=== PATIENT | female | born 1985 | race Caucasian/White ===

== ENCOUNTER 2016-10-04 22:34 | Emergency (ER) | payer OTHER ==
--- NOTE | 2016-10-05 00:08 | ED CLINICAL REPORT ---
Clinical Report - Physicians/Mid Levels [facility] [address] [place] [address] 10/04/2016 22:36 Patient: ZULLY DONOVAN *This is a preliminary document and is subject to change Time Seen: 22:53; initial patient contact. Arrived- By private vehicle. Historian- patient. HISTORY OF PRESENT ILLNESS At its maximum, severity described as moderate. When seen in the E.D., it was almost gone. Modifying factors- (Relieved with canabis candy). Not worsened by anything. It is described as cramping. No radiation. It is described as located in the left pelvis. Is still present but is better now. It was gradual in onset and has been intermittent. The patient has had nausea. No loss of appetite, vomiting or diarrhea. Similar symptoms previously: None. 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 REVIEW OF SYSTEMS No constipation, difficulty with urination, pain with urination, urinary frequency or fever. No skin rash or chills. Last bowel movement: today. She has had joint pain. All systems otherwise negative, except as recorded above. PAST HISTORY URI. SURGERIES: Knee Surgery. SOCIAL HISTORY Never smoker. History of drug use: marijuana. No alcohol use. ADDITIONAL NOTES The nursing notes have been reviewed. PHYSICAL EXAM Vital Signs: 10/04/2016 22:40 BP: 125/71. HR: 81. RR: 17. O2 saturation: 100%. Temp: 97.6 F. Pain level now: 11/04. Have been reviewed as normal. Appearance: Alert. Oriented X3. No acute distress. Eyes: Eyes normal inspection. ENT: Pharynx normal. CVS: Normal heart rate and rhythm. Heart sounds normal. Respiratory: No respiratory distress. Breath sounds normal. Abdomen: Soft and nontender. Bowel sounds normal. No organomegaly. No mass. Back: Normal inspection. No CVA tenderness. Skin: Skin warm and dry. Normal skin color. No rash. Extremities: No lower extremity edema. Neuro: Oriented X 3. No motor deficit. LABS, X-RAYS, AND EKG Laboratory Tests: UA-Culture if indicated: (CHARISMA: 10/04/2016 22:52) ( Mscvd 10/04/2016 23:18) Final results Test Result Flag Units (Reference) URINE COLOR YELLOW URINE APPEARANCE CLEAR URINE GLUCOSE NEGATIVE (NEGATIVE) URINE BILIRUBIN NEGATIVE (NEGATIVE) URINE KETONE NEGATIVE (NEGATIVE) URINE SPECIFIC GRAVITY 1.010 (1.010-1.030) URINE PH 6.0 (5.0-8.0) URINE PROTEIN NEGATIVE (NEGATIVE) URINE UROBILINOGEN 0.2 EU/dL (0.2-1.0) URINE NITRITE NEGATIVE (NEGATIVE) URINE BLOOD NEGATIVE (NEGATIVE) URINE LEUK ESTERASE NEGATIVE (NEGATIVE) URINE RBC 0-1 rbc/hpf (0-1) URINE WBC RARE wbc/hpf (0-1) URINE EPITHELIAL CELLS 1-3 EPI/hpf (0-5) URINE BACTERIA TRACE (<1+) (NONE SEEN) URINE COMMENT CULT NOT INDICATED URINE CULTURES ARE SET-UP BASED ON THE FOLLOWING CRITERIA:POSITIVE NITRITEPOSITIVE LEUKOCYTE ESTERASEGREATER THAN 10 WHITE BLOOD CELLSMODERATE (2+) OR GREATER BACTERIA Urine: (CHARISMA: 10/04/2016 22:52) ( MsgRcvd 10/04/2016 23:14) Final results Test Result Flag Units (Reference) URINE NEGATIVE CBC w Diff: (CHARISMA: 10/04/2016 22:45) ( MsgRcvd 10/04/2016 23:43) Final results Test Result Flag Units (Reference) WHITE BLOOD COUNT 6.6 K/uL (4.5-11.5) RED BLOOD COUNT 4.73 M/uL (4.00-5.20) HEMOGLOBIN 13.5 gm/dL (12.0-16.0) HEMATOCRIT 41.8 % (36.0-46.0) MEAN CELL VOLUME 88 fL (80-100) MEAN CORPUSCULAR HGB 29 pg (26-34) MEAN CORPUSCULAR HGB CONC 32 g/dL (31-37) RED CELL DISTRIBUTION WIDTH 13.2 % (11.6-14.8) PLATELET COUNT 200 K/uL (150-400) POLY % 55 % (50-75) BAND % 0 % (0-8) LYMPH 33 % (25-40) MONO 7 % (3-14) EOSINOPHIL % 4 % (0-4) BASOPHIL % 1 % (0-2) METAMYELOCYTE % 0 % (0-1) MYELOCYTE 0 % (0-1) OTHER CELL TYPE 0 Lipase: (CHARISMA: 10/04/2016 22:55) ( MsgRcvd 10/04/2016 23:34) Final results Test Result Flag Units (Reference) GLUCOSE 84 mg/dL (70-110) BUN 11 mg/dL (7-18) CREATININE 0.8 mg/dL (0.6-1.3) Estimated GFR >60 mL/min Estimated GFR- >60 mL/min Note: Persistent reduction over 3 months in eGFR<60 mL/min/1.73 m2 defines CKD. Patients with eGFR values>=60 mL/min/1.73 m2 may also have CKD if evidence ofpersistent proteinuria. Additional information may be foundat www.kidney.org. SODIUM 144 mmol/L (136-145) POTASSIUM 3.7 mmol/L (3.5-5.1) CHLORIDE 107 mmol/L (98-107) CARBON DIOXIDE 27 mmol/L (21-32) CALCIUM 8.5 mg/dL (8.5-10.1) TOTAL PROTEIN 7.4 g/dL (6.4-8.2) ALBUMIN 3.9 g/dL (3.3-5.0) BILIRUBIN, TOTAL 0.8 mg/dL (0.0-1.0) ALKALINE PHOSPHATASE 83 U/L (46-116) AST (SGOT) 30 U/L (15-37) ALT (SGPT) 46 U/L (12-78) LIPASE 180 U/L (73-393) AMYLASE 50 U/L (25-115) . Aleksandar Barnhart Dr.
--- NOTE | 2016-10-05 00:08 | ED NURSING NOTES ---
Clinical Report - Nurses [facility] [address] [place] [address] 10/04/2016 22:36 Patient: ZULLY DONOVAN TRIAGE Triage time 22:41 Oct 04 2016. Chief Complaint: ABDOMINAL PAIN and (pt co "cramping" low abd area that radiates up to left upper quad, normal bm this morning, completed atbx for uti one week ago). Alert. No acute distress. SEPSIS SCREEN: Sepsis Screen. Negative (no infection suspected/documented). --22:46 Herve Lees R.N. 22:40 10/04/16. BP: 125/71. HR: 81. RR: 17. O2 saturation: 100%. Temp: 97.6 F. Pain level now: 11/04. --22:46 Herve Lees R.N. Weight: 56.6 kg stated. Height/Length: 65 inches Per Patient. BMI: 20.8. --22:45 Herve Lees R.N. Medications None. --22:47 Herve Lees R.N. Allergies None. --22:47 Herve Lees R.N. Medication/allergy information source: the patient. --22:46 Herve Lees R.N. History Arrived by private vehicle. Historian: patient and family. Accompanied by family. The patient has had nausea and abdominal pain. Last oral intake by patient was (2 hours ago). 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 PAST MEDICAL HX: Immunizations: up-to-date. Last normal menstrual period- September 18. SOCIAL HX: Smoker- current status unknown. Occasional alcohol use. History of drug use: marijuana. No infectious disease exposure. No known contact with a sick individual. ABUSE ASSESSMENT: No report of abuse. SELF HARM ASSESSMENT: A self harm assessment was performed. The patient answered "no" to the question "Have you recently felt down, depressed, or hopeless?", "Have you noticed less interest or pleasure in doing things?", "Do you have thoughts of harming or killing yourself?", "Are you here because you tried to hurt yourself?", "Have you ever tried to hurt yourself before today?", "Have you recently had thoughts about harming or killing others?" and "Do you have any dangerous items in your possession?". FALL RISK ASSESSMENT: Fall risk assessment completed. No fall risk identified. NUTRITIONAL RISK ASSESSMENT: The nutritional risk assessment revealed no deficiencies. FUNCTIONAL ASSESSMENT: Functional assessment: no impairments noted. LEARNING NEEDS ASSESSMENT: The learning needs assessment revealed no barriers. SKIN INTEGRITY ASSESSMENT: Skin integrity risk assessment completed. No skin integrity risk identified. --22:46 Herve Lees R.N. PROBLEMS: URI. --:47 Herve Lees R.N. ADDITIONAL SURGERIES: Knee Surgery. --:47 Herve Lese R.N. Interventions ID band on patient. --22:46 Herve Lees R.N. PHYSICAL ASSESSMENT Ambulatory to room. Patient gowned. GENERAL / NEURO / PSYCH: Alert. Oriented X 4. Appears in no acute distress. HEENT: Mucous membranes are pink. RESPIRATORY: Respirations not labored. Breath sounds within normal limits. CVS: Capillary refill less than 2 seconds. GI / : Abdomen soft and nontender. Bowel sounds within normal limits. SKIN: Skin is warm and dry. --22:48 Herve Lees R.N. NURSING PROGRESS NOTES Monitoring of patient in place. Patient gowned. Head of bed elevated. Reassurance given. Patient identifiers checked. Call light placed in reach. Side rails up x 1. Bed placed in lowest position. Brakes of bed on. Patient ready for evaluation- chart flagged. Patient waiting for evaluation. --22:48 Herve Lees R.N. 22:55. Patient ID band checked urine collected; sample sent to lab. Specimen labeled in the presence of the patient. --23:01 McQuoid, Zuleima, ER Tech1. DISPOSITION / DISCHARGE Departure time: 26. Condition at departure: unchanged. No learning barriers present. Discharge instructions provided and reviewed with the patient and spouse. Reviewed medication(s) side effects and course information. Prescription(s) given to the patient. Patient verbalized understanding. Written instructions provided in Luxembourgish. The patient was discharged by the physician. She was discharged home and accompanied by spouse. She left the Emergency Department ambulatory and via private vehicle. Spouse driving. ( pt dc home ambulatory with steady gait, pt given rx and f/u.). --00:34 Herve Lees R.N. 00:32 10/05/16. BP: 102/55. HR: 74. RR: 17. O2 saturation: 99%. Temp: 98.4 F. Pain level now: 12/04. --00:34 Herve Lees R.N. Locked/Released at 10/11/2016 8:25 by Herve Lees R.N.
--- NOTE | 2016-10-05 00:08 | ED NURSING NOTES ---
Clinical Report - Nurses [facility] [address] [place] [address] 10/04/2016 22:36 Patient: ZULLY DONOVAN TRIAGE Triage time 22:41 Oct 04 2016. Chief Complaint: ABDOMINAL PAIN and (pt co "cramping" low abd area that radiates up to left upper quad, normal bm this morning, completed atbx for uti one week ago). Alert. No acute distress. SEPSIS SCREEN: Sepsis Screen. Negative (no infection suspected/documented). --22:46 Herve Lees R.N. 22:40 10/04/16. BP: 125/71. HR: 81. RR: 17. O2 saturation: 100%. Temp: 97.6 F. Pain level now: 11/04. --22:46 Herve Lees R.N. Weight: 56.6 kg stated. Height/Length: 65 inches Per Patient. BMI: 20.8. --22:45 Herve Lees R.N. Medications None. --22:47 Herve Lees R.N. Allergies None. --22:47 Herve Lees R.N. Medication/allergy information source: the patient. --22:46 Herve Lees R.N. History Arrived by private vehicle. Historian: patient and family. Accompanied by family. The patient has had nausea and abdominal pain. Last oral intake by patient was (2 hours ago). 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 PAST MEDICAL HX: Immunizations: up-to-date. Last normal menstrual period- September 18. SOCIAL HX: Smoker- current status unknown. Occasional alcohol use. History of drug use: marijuana. No infectious disease exposure. No known contact with a sick individual. ABUSE ASSESSMENT: No report of abuse. SELF HARM ASSESSMENT: A self harm assessment was performed. The patient answered "no" to the question "Have you recently felt down, depressed, or hopeless?", "Have you noticed less interest or pleasure in doing things?", "Do you have thoughts of harming or killing yourself?", "Are you here because you tried to hurt yourself?", "Have you ever tried to hurt yourself before today?", "Have you recently had thoughts about harming or killing others?" and "Do you have any dangerous items in your possession?". FALL RISK ASSESSMENT: Fall risk assessment completed. No fall risk identified. NUTRITIONAL RISK ASSESSMENT: The nutritional risk assessment revealed no deficiencies. FUNCTIONAL ASSESSMENT: Functional assessment: no impairments noted. LEARNING NEEDS ASSESSMENT: The learning needs assessment revealed no barriers. SKIN INTEGRITY ASSESSMENT: Skin integrity risk assessment completed. No skin integrity risk identified. --22:46 Herve Lees R.N. PROBLEMS: URI. --:47 Herve Lees R.N. ADDITIONAL SURGERIES: Knee Surgery. --:47 Herve Lees R.N. Interventions ID band on patient. --22:46 Herve Lees R.N. PHYSICAL ASSESSMENT Ambulatory to room. Patient gowned. GENERAL / NEURO / PSYCH: Alert. Oriented X 4. Appears in no acute distress. HEENT: Mucous membranes are pink. RESPIRATORY: Respirations not labored. Breath sounds within normal limits. CVS: Capillary refill less than 2 seconds. GI / : Abdomen soft and nontender. Bowel sounds within normal limits. SKIN: Skin is warm and dry. --22:48 Herve Lees R.N. NURSING PROGRESS NOTES Monitoring of patient in place. Patient gowned. Head of bed elevated. Reassurance given. Patient identifiers checked. Call light placed in reach. Side rails up x 1. Bed placed in lowest position. Brakes of bed on. Patient ready for evaluation- chart flagged. Patient waiting for evaluation. --22:48 Herve Lees R.N. 22:55. Patient ID band checked urine collected; sample sent to lab. Specimen labeled in the presence of the patient. --23:01 McQuoid, Zuleima, ER Tech1. DISPOSITION / DISCHARGE Departure time: 26. Condition at departure: unchanged. No learning barriers present. Discharge instructions provided and reviewed with the patient and spouse. Reviewed medication(s) side effects and course information. Prescription(s) given to the patient. Patient verbalized understanding. Written instructions provided in Tamazight. The patient was discharged by the physician. She was discharged home and accompanied by spouse. She left the Emergency Department ambulatory and via private vehicle. Spouse driving. ( pt dc home ambulatory with steady gait, pt given rx and f/u.). --00:34 Herve Lees R.N. 00:32 10/05/16. BP: 102/55. HR: 74. RR: 17. O2 saturation: 99%. Temp: 98.4 F. Pain level now: 12/04. --00:34 Herve Lees R.N. Locked/Released at 10/11/2016 8:25 by Herve Lees R.N.
--- NOTE | 2016-10-05 00:08 | ED ORDER SUMMARY ---
..... Patient: ZULLY DONOVAN OrderSheet [facility] VisitID: [id number] [address] [place] [address] 31y, F Registration Date/Time: 10/04/2016 ORDER SHEET Weight: 56.6 kg (stated) Allergies: None GENERAL ORDERS: Urine Urgent (22:54 10/04/2016 AMcQuoid ER Tech1 per protocol) (22:55 AMcQuoid ER Tech1) UA-Culture if indicated Urgent (22:54 10/04/2016 AMcQuoid ER Tech1 per protocol) (22:55 AMcQuoid ER Tech1) CBC w Diff Urgent (23:10/04/2016 Rossy Dooley) (Ack 23:10 AMcQuoid ER Tech1) (23:10 AMcQuoid ER Tech1) CMP Urgent (23:10/04/2016 Rossy Dooley) (Ack 23:10 AMcQuoid ER Tech1) (23:10 AMcQuoid ER Tech1) Amylase Urgent (23:10/04/2016 Rossy Dooley) (Ack 23:10 AMcQuoid ER Tech1) (23:10 AMcQuoid ER Tech1) Lipase Urgent (23:10/04/2016 Rossy Dooley) (Ack 23:10 AMcQuoid ER Tech1) (23:10 AMcQuoid ER Tech1) MEDICATION ORDERS: IV FLUIDS: ORDER SHEET NOTES: This document has not been locked and should not be saved in the medical record.
--- NOTE | 2016-10-05 00:08 | ED ORDER SUMMARY ---
..... Patient: ZULLY DONOVAN OrderSheet [facility] VisitID: [id number] [address] [place] [address] 31y, F Registration Date/Time: 10/04/2016 ORDER SHEET Weight: 56.6 kg (stated) Allergies: None GENERAL ORDERS: Urine Urgent (22:54 10/04/2016 AMcQuoid ER Tech1 per protocol) (22:55 AMcQuoid ER Tech1) UA-Culture if indicated Urgent (22:54 10/04/2016 AMcQuoid ER Tech1 per protocol) (22:55 AMcQuoid ER Tech1) CBC w Diff Urgent (23:10/04/2016 Rossy Dooley) (Ack 23:10 AMcQuoid ER Tech1) (23:10 AMcQuoid ER Tech1) CMP Urgent (23:10/04/2016 Rossy Dooley) (Ack 23:10 AMcQuoid ER Tech1) (23:10 AMcQuoid ER Tech1) Amylase Urgent (23:10/04/2016 Rossy Dooley) (Ack 23:10 AMcQuoid ER Tech1) (23:10 AMcQuoid ER Tech1) Lipase Urgent (23:10/04/2016 Rossy Dooley) (Ack 23:10 AMcQuoid ER Tech1) (23:10 AMcQuoid ER Tech1) MEDICATION ORDERS: IV FLUIDS: ORDER SHEET NOTES: This document has not been locked and should not be saved in the medical record.
--- NOTE | 2016-10-11 08:25 | ED MAR SUMMARY ---
..... Medication Administration Record [facility] [address], [place] [id number] Patient: ZULLY DONOVAN Visit ID: [id number] 31y, F Weight: 56.6 kg Height/Length: 65 in BMI: 20.8 ALLERGIES: None
--- NOTE | 2016-10-11 08:25 | ED DISCHARGE INSTRUCTIONS ---
Patient: ZULLY DONOVAN General Instructions [facility] VisitID: [id number] [address] [place] [address] 31y, F Registration Date/Time: 10/04/2016 Left lower quadrant abdominal pain of unknown cause. INSTRUCTIONS Your Current Medications: CONTINUE TAKING THE FOLLOWING MEDICATIONS: None*. Prescription Medications: Zofran ODT 4 mg: take 1 orally every 6 hours as needed for nausea and vomiting. Dispense ten (10). No refill. Substitution is permissible. Diclofenac 50 mg tablets: take 1 tablet orally every 6 hours as needed for pain or stiffness. Dispense thirty (30). No refill. Follow-up: Follow up with your doctor Sunday as scheduled. Screening today revealed the patient's blood pressure to be in the pre-hypertensive range. The patient should follow up with a primary care provider for blood pressure management. ADDITIONAL INFORMATION Abdominal Pain, Unknown Cause (Female) The exact cause of your abdominal (stomach) pain is not certain. This does not mean that this is something to worry about, or the right tests were not done. Everyone likes to know the exact cause of the problem, but sometimes with abdominal pain, there is no clear-cut cause, and this could be a good thing. The good news is that your symptoms can be treated, and you will feel better. Your condition does not seem serious now; however, sometimes the signs of a serious problem may take more time to appear. For this reason,it is important for you to watch for any new symptoms, problems,or worsening of your condition. Over the next few days, the abdominal pain may come and go, or be continuous. Other common symptoms can include nausea and vomiting. Sometimes it can be difficult to tell if you feel nauseous, you may just feel bad and not associate that feeling with nausea. Constipation, diarrhea, and a fever may go along with the pain. The pain may continue even if treated correctly over the following days. Depending on how things go, sometimes the cause can become clear and may require further or different treatment. Additional evaluations, medications, or tests may be needed. Home care Your health care provider may prescribe medications for pain, symptoms, or an infection. Follow the health care provider's instructions for taking these medications. General care Rest until your next exam. No strenuous activities. Try to find positions that ease discomfort. A small pillow placed on the abdomen may help relieve pain. Something warm on your abdomen (such as a heating pad) may help, but be careful not to burn yourself. Diet Do not force yourself to eat, especially if having cramps, vomiting, or diarrhea. Water is important so you do not get dehydrated. Soup may also be good. Sports drinks may also help, especially if they are not too acidic. Make sure you don't drink sugary drinks as this can make things worse. Take liquids in small amounts. Do not guzzle them. Caffeine sometimes makes the pain and cramping worse. Avoid dairy products if you have vomiting or diarrhea. Don't eat large amounts at a time. Wait a few minutes between bites. Eat a diet low in fiber (called a low-residue diet). Foods allowed include refined breads, white rice, fruit and vegetable juices without pulp, tender meats. These foods will pass more easily through the intestine. Avoid whole-grain foods, whole fruits and vegetables, meats, seeds and nuts, fried or fatty foods, dairy, alcohol and spicy foods until your symptoms go away. Follow-up care Follow up with your health care provider as instructed, or if your pain does not begin to improve in the next 24 hours. When to seek medical care Seek prompt medical care if any of the following occur: Pain gets worse or moves to the right lower abdomen New or worsening vomiting or diarrhea Swelling of the abdomen Unable to pass stool for more than three days Fever of 100.4F (38C) or higher, or as directed by your healthcare provider. Blood in vomit or bowel movements (dark red or black color) Jaundice (yellow color of eyes and skin) Weakness, dizziness Chest, arm, back, neck or jaw pain Unexpected vaginal bleeding or missed period Call 911 Call emergency services if any of the following occur: Trouble breathing Confusion Fainting or loss of consciousness Rapid heart rate Seizure Ondansetron Oral disintegrating tablet What is this medicine? ONDANSETRON (on LOWELL se charles) is used to treat nausea and vomiting caused by chemotherapy. It is also used to prevent or treat nausea and vomiting after surgery. How should I use this medicine? These tablets are made to dissolve in the mouth. Do not try to push the tablet through the foil backing. With dry hands, peel away the foil backing and gently remove the tablet. Place the tablet in the mouth and allow it to dissolve, then swallow. While you may take these tablets with water, it is not necessary to do so. Talk to your head of geography regarding the use of this medicine in children. Special care may be needed. What side effects may I notice from receiving this medicine? Side effects that you should report to your doctor or health healthcare customer service as soon as possible: allergic reactions like skin rash, itching or hives, swelling of the face, lips, or tongue breathing problems dizziness fast or irregular heartbeat feeling faint or lightheaded, falls fever and chills swelling of the hands and feet tightness in the chest Side effects that usually do not require medical attention (report to your doctor or health healthcare customer service if they continue or are bothersome): constipation or diarrhea headache What may interact with this medicine? Do not take this medicine with any of the following medications: -apomorphine -cisapride -dofetilide -dronedarone -pimozide -thioridazine -ziprasidone This medicine may also interact with the following medications: -carbamazepine -phenytoin -rifampicin -tramadol -other medicines that prolong the QT interval (cause an abnormal heart rhythm) What if I miss a dose? If you miss a dose, take it as soon as you can. If it is almost time for your next dose, take only that dose. Do not take double or extra doses. Where should I keep my medicine? Keep out of the reach of children. Store between 2 and 30 degrees C (36 and 86 degrees F). Throw away any unused medicine after the expiration date. What should I tell my health care provider before I take this medicine? They need to know if you have any of these conditions: heart disease history of irregular heartbeat liver disease low levels of magnesium or potassium in the blood an unusual or allergic reaction to ondansetron, granisetron, other medicines, foods, dyes, or preservatives or trying to get breast-feeding What should I watch for while using this medicine? Check with your doctor or health healthcare customer service as soon as you can if you have any sign of an allergic reaction. You have been given the following additional information: Abdominal Pain, Unknown Cause, (Female) Ondansetron Oral disintegrating tablet (Electronically signed by Aleksandar Barnhart Dr. 10/05/2016 0:10)
--- NOTE | 2016-10-11 08:25 | ED MED RECONCILIATION SUMMARY ---
Patient: ZULLY DONOVAN Medication Reconciliation Report [facility] VisitID: [id number] [address] [place] [address] 31y, F Registration Date/Time: 10/04/2016 Weight: 56.6 kg Height/Length: 65 in. BMI: 20.8 ALLERGIES: None The patient's Home Medications are listed below: NONE. The source(s) of the original Home Medication information: patient The following Medications were given to the patient in the Emergency Department: None. The following Medications were prescribed to the patient: Zofran ODT 4 mg: take 1 orally every 6 hours as needed for nausea and vomiting. Dispense ten (10). No refill. Substitution is permissible. -- Aleksandar Barnhart Dr. Diclofenac 50 mg tablets: take 1 tablet orally every 6 hours as needed for pain or stiffness. Dispense thirty (30). No refill. -- Aleksandar Barnhart Dr.
--- NOTE | 2016-10-11 08:25 | ED MAR SUMMARY ---
..... Medication Administration Record [facility] [address] [place], [place] [id number] Patient: ZULLY DONOVAN Visit ID: [id number] 31y, F Weight: 56.6 kg Height/Length: 65 in BMI: 20.8 ALLERGIES: None
--- NOTE | 2016-10-11 08:25 | ED MED RECONCILIATION SUMMARY ---
Patient: ZULLY DONOVAN Medication Reconciliation Report [facility] VisitID: [id number] [address] [place] [address] 31y, F Registration Date/Time: 10/04/2016 Weight: 56.6 kg Height/Length: 65 in. BMI: 20.8 ALLERGIES: None The patient's Home Medications are listed below: NONE. The source(s) of the original Home Medication information: patient The following Medications were given to the patient in the Emergency Department: None. The following Medications were prescribed to the patient: Zofran ODT 4 mg: take 1 orally every 6 hours as needed for nausea and vomiting. Dispense ten (10). No refill. Substitution is permissible. -- Aleksandar Barnhart Dr. Diclofenac 50 mg tablets: take 1 tablet orally every 6 hours as needed for pain or stiffness. Dispense thirty (30). No refill. -- Aleksandar Barnhart Dr.
== END 2016-10-05 00:27 | disposition home or self-care (01) ==
LOC: ED SRH 22:34
DX: R10.32 Left lower quadrant pain (principal)
CPT/HCPCS: 90004; 90074; 90100; 91643; 92235; 92530; 93070; 95059